=== PATIENT | male | born 1970 | race American Indian/Alaskan Native ===

== ENCOUNTER 2021-04-12 05:44 | Inpatient (IN) | payer MEDICAID, OTHER ==
--- NOTE | 2021-04-12 05:48 | Event Note ---
Date: 04/12/21 EMS documentation not available at time of chart dictation Verbal report received from EMS Medical screening examination note: 50-year-old gentleman brought to the emergency room by EMS who is currently a prisoner, with a history of stroke, and possible hypertension, reports no systemic anticoagulation use, presenting as a possible stroke. Last known well time approximately 1 hour prior to ER arrival. EMS reports normal Accu-Chek. Stroke symptoms include right arm and right leg weakness and numbness. Code stroke activated overhead. CT scan of the brain, CT angiogram head and neck ordered. Appropriate laboratory studies ordered. Neurology consultation pending. Oncoming ER provider to perform detailed history and physical examination, and direct definitive care. Patient is awake, alert, hemodynamically stable, protecting airway at this time.
[2021-04-12] MEDS ORDERED: ALTEPLASE 100 MG INJ KIT ONE (06:07)
[2021-04-12] MEDS ORDERED: SODIUM CHLORIDE 0.9% 100 ML ONE (06:07)
--- NOTE | 2021-04-12 06:11 | Consultation ---
History of Present Illness Consult date: 04/12/21 History of present illness: [facility] Consult Note # Demographics Consult Type: Acute Stroke Level 1 (0-4.5 hrs) Patient Location: Emergency Room First Name: Amilcar Last Name: Garry Date of : 1970 Age: 50 Gender: Male Facility: [facility] Time of Initial Page (Eastern Time): 04/12/2021, 05:40 Time of Return Call ( Time): 04/12/2021, 05:41 # HPI Chief Complaint: weakness (focal) History: Per EMS, patient developed right-sided numbness, followed by weakness at 4:40am. He was reportedly awake previous to that because his asthma was acting up." EMS also reported difficulty breathing, dyspnea, & chest pain. Patient did have residual left-sided deficits from previous stroke, uncertain if ischemic or hemorrhagic. Last Known Normal: I have collected independent history specific to time last normal or last known well. We have collaborated with the provider and at this time, we have the most current timeline with the information that is available. 11pm Duration: constant minutes hours Possible Thrombolytic candidate: not on warfarin or NOACs no intracranial hemorrhage history no recent major surgery Patient adamantly denied ICH or hemorrhagic transformation from prior 2014 stroke Associated Symptoms: no double vision headache no vision changes Quality: weakness Context/Pre-existing conditions: pre-existing motor deficit # Scores Time of exam and NIHSS ( Time): 04/12/2021, 05:44 Level of Consciousness 1a: [0] = Alert; keenly responsive LOC Questions 1b: [0] = Answers both questions correctly LOC Commands 1c: [0] = Performs both tasks correctly Best Gaze 2: [0] = Normal Visual 3: [0] = No visual loss Facial Palsy 4: [1] = Minor paralysis Motor Arm Left 5a: [0] = No drift Motor Arm Right 5b: [2] = Some effort against gravity Motor Leg Left 6a: [0] = No drift Motor Leg Right 6b: [2] = Some effort against gravity Limb Ataxia 7: [0] = Absent Sensory 8: [2] = Severe to total sensory loss Best Language 9: [0] = No aphasia Dysarthria 10: [0] = Normal Extinction and Inattention 11: [0] = No abnormality NIHSS Total: 7 Modified [place] Scale (mRS) pre-stroke: [1] = No signif. disability... carry out all usual duties/activities Modified [place] Scale total: 1 VAN Screening: Negative # Exam SBP: 188 DBP: 100 Mental Status: awake alert and oriented x 3 follows commands Language: normal speech Cranial Nerves: left facial droop Chronic from prior stroke Sensory: decreased sensation right face decreased sensation right upper extremity decreased sensation right lower extremity # ROS Pulmonary: shortness of breath Cardiovascular: chest pain # PMH-FH-SH Past Medical History: asthma Diabetes hypertension stroke February 2014 ischemia Medications: antihypertensive aspirin diabetic medication Allergies: NKDA # Data Glucose: [address] personally read by me ( Time): 04/12/2021, 05:[address]: no bleed MCA sign preliminarily reviewed by me, please refer to radiology read for official reading subacute ischemic stroke Possible left MCA hyperdense # Assessment Impression: Ischemic Stroke (Acute) # Plan Thrombolytic/Intervention: IV thrombolytic and possible IA candidate Thrombolytic Dosing: IV alteplase 0.9 mg/kg, max dose 90 mg; 10% of dose given over 1 minute IVP, remaining 90% given as infusion over 1 hour Possible IA Candidate: CTA pending Potential left MCA hyperdense sign on CT Time IV Thrombolytic Recommended ( Time): 04/12/2021, 06:05 Labs: CBC comprehensive metabolic panel ESR hemoglobin A1c lipid panel urine drug screen ua Imaging: (urgency: STAT): CT Angiogram Head and CT Angiogram Neck AND call back with results if abnormal Imaging: (urgency: routine): MRI Brain without contrast Diagnostic Test: echo without bubble study Therapy/Evaluation: NPO until swallow evaluation PT/OT evaluation Medication: start statin with goal of LDL < 70 DVT Prophylaxis: SCD chemical DVT prophylaxis Thrombolytic Administration Recommendations: I reviewed the risks/benefits/alternatives of IV thrombolytic therapy with the patient. They understand there is potential of life threatening hemorrhage from IV thrombolysis. I stated that I believe benefits outweighs risk. They wish to proceed with IV thrombolytic therapy. I have collected independent history specific to time last normal or last known well. We have collaborated with the ED provider and at this time, we have the most current timeline with the information that is available. BP goal< 180/105 for 24hrs post Thrombolytic administration Use Labetolol 10-20mg IV prn or Nicardipine gtt to maintain BP parameters No antiplatelets or anticoagulants for next 24 hrs unless indicated for emergent IA procedure or other life threatening situation ICU admission Other: LDL < 70 telemetry monitoring seizure precautions I have discussed my recommendations with the referring provider Disposition: admit
--- NOTE | 2021-04-12 06:15 | Cat Scan Report ---
CT HEAD WITHOUT CONTRAST INDICATION: CODE STROKE PROTOCOL!!! Stroke-Like symptoms. TECHNIQUE: All CT scans at this location are performed using CT dose reduction for ALARA by means of automated e xposure control. COMPARISON: None available. FINDINGS: HEMORRHAGE: None. EXTRA-AXIAL SPACES: Normal in size and morphology for the patient's age. VENTRICULAR SYSTEM: Normal in size and morphology for the patient's age. BRAIN PARENCHYMA: No acute findings. Encephalomalacia is noted in the right frontal lobe and within t he right parieto-occipital region which may be related to remote ischemic event. MIDLINE SHIFT OR HERNIATION: None. ORBITS: Normal as visualized. SOFT TISSUES OF HEAD: Normal. CALVARIUM: Changes from prior right frontotemporal craniotomy are noted. VISUALIZED PARANASAL SINUSES AND MASTOID AIR CELLS: There is complete opacification of the left maxil pauline sinus. ADDITIONAL FINDINGS: None. IMPRESSION: 1. No acute intracranial abnormality. CODE STROKE Time of Communication (CLOTHES PRESSER/CDT): 5:09 AM Signer Name: Keny Salomon MD Signed: 04/12/2021 6:10 AM Workstation Name: [id number]
[2021-04-12] MEDS ORDERED: SODIUM CHLORIDE 0.9% 50 ML IVPB IV ONE (06:16)
[2021-04-12] MEDS ORDERED: ALTEPLASE 100 MG INJ KIT IV ONE ×2 (06:16)
--- NOTE | 2021-04-12 06:38 | Emergency Department Report ---
ED Neuro Deficit HPI - General Stated Complaint: POSS STROKE Time Seen by Provider: 04/12/21 06:10 Source: patient, EMS - History of Present Illness Initial Comments: Patient is 51 years old male with history of left sided CVA in 2015, hypertension and diabetes. Patient brought to the emergency room via EMS from a local half-way for possible stroke. Patient symptoms started at 4:40 AM with right upper and lower extremity numbness followed by weakness. Patient denied any headache, neck pain, chest pain or shortness of breath. Patient denied any speech problem. No visual problem. He also denied any ataxia. Stroke protocol immediately initiated and patient moved to CT for stat CT head without contrast. Stroke telemetry neurologist immediately consulted and patient examined by . CT brain is negative for hemorrhage or mass- effect. Patient is a TPA candidate determined by Dr. Mcconnell. TPA immediately started. -: Sudden, This morning Location: left face, right arm, right leg Presenting Symptoms: Present: Weak/Paralyzed One Side, Facial Droop/Numbness Improves With: none Context: sudden onset Associated Symptoms: denies other symptoms - Related Data Allergies/Adverse Reactions: Allergies Allergy/AdvReac Type Severity Reaction Status Date / Time No Known Allergies Allergy Verified 04/12/21 06:22 ED Review of Systems ROS: Stated complaint: POSS STROKE Other details as noted in HPI Comment: All other systems reviewed and negative Constitutional: denies: chills, fever Respiratory: denies: cough, shortness of breath, SOB with exertion Cardiovascular: denies: chest pain, palpitations Gastrointestinal: denies: abdominal pain, nausea Neurological: weakness, numbness, paresthesias ED Neuro Physical Exam - General General appearance: alert, in no apparent distress Suspected Stroke: Yes - Head Head exam: Present: atraumatic, normocephalic, normal inspection - Eye Eye exam: Present: normal appearance, PERRL - ENT ENT exam: Present: normal exam, normal orophraynx, mucous membranes moist - Neck Neck exam: Present: normal inspection, full ROM. Absent: tenderness, meningismus - Respiratory Respiratory exam: Present: normal lung sounds bilaterally - Cardiovascular Cardiovascular Exam: Present: regular rate, normal rhythm, normal heart sounds - GI/Abdominal GI/Abdominal exam: Present: soft, normal bowel sounds. Absent: distended, tenderness, guarding, rebound, rigid, organomegaly, bruit, pulsatile mass, hernia - Extremities Exam Extremities exam: Present: normal inspection, full ROM, normal capillary refill. Absent: tenderness - Back Exam Back exam: Present: normal inspection. Absent: CVA tenderness (R), CVA tenderness (L) - Neurological Exam Neurological exam: Present: alert, oriented X3, motor sensory deficit. Absent: CN II-XII intact - NIHSS Assessment Interval: Baseline 1a. Level of Consciousness: alert/keenly responsive 1b. LOC Questions: answers both correctly 1c. LOC Commands: performs tasks correctly 2. Best Gaze: normal 3. Visual: no visual loss 4. Facial Palsy: partial paralysis 5b. Motor Arm Right: some gravity effort 5a. Motor Arm Left: no drift 6a. Motor Leg Left: no drift 6b. Motor Leg Right: some gravity effort 7. Limb Ataxia: absent 8. Sensory: severe/total sensory loss 9. Best Language: no aphasia 10. Dysarthria: normal 11. Extinction/Inattention: no abnormality Total Score: 8 Stroke Severity: Moderate Stroke - Psychiatric Psychiatric exam: Present: normal mood - Skin Skin exam: Present: warm, intact, normal color ED Course Vital Signs 04/12/21 04/12/21 04/12/21 06:31 06:37 06:48 Temperature Pulse Rate 105 H 106 H 108 H Pulse Rate [ Right Arm] Respiratory 20 Rate Respiratory Rate [Right Arm ] Blood Pressure 160/93 169/99 Blood Pressure [Right Arm] Blood Pressure 167/94 [Right] O2 Sat by Pulse 96 Oximetry O2 Sat by Pulse Oximetry [ Right Arm] 04/12/21 04/12/21 04/12/21 06:50 07:00 07:07 Temperature 98.3 F Pulse Rate Pulse Rate [ 120 H 107 H Right Arm] Respiratory Rate Respiratory 20 19 Rate [Right Arm ] Blood Pressure Blood Pressure 169/99 158/94 [Right Arm] Blood Pressure [Right] O2 Sat by Pulse Oximetry O2 Sat by Pulse 99 100 Oximetry [ Right Arm] 04/12/21 04/12/21 04/12/21 07:15 07:30 07:45 Temperature Pulse Rate Pulse Rate [ 106 H 110 H 106 H Right Arm] Respiratory Rate Respiratory 18 18 18 Rate [Right Arm ] Blood Pressure Blood Pressure 150/93 164/92 174/99 [Right Arm] Blood Pressure [Right] O2 Sat by Pulse Oximetry O2 Sat by Pulse 94 96 96 Oximetry [ Right Arm] 04/12/21 08:00 Temperature Pulse Rate Pulse Rate [ 110 H Right Arm] Respiratory Rate Respiratory 18 Rate [Right Arm ] Blood Pressure Blood Pressure 174/92 [Right Arm] Blood Pressure [Right] O2 Sat by Pulse Oximetry O2 Sat by Pulse 94 Oximetry [ Right Arm] - Reevaluation(s) Reevaluation #1: 04/12/21 07:45 Patient getting a TPA with no complication. Patient denied any change in his symptoms yet. Patient also complained of headache however this headache started before the TPA started. He stated that he has been having headache for a few days. Patient received Tylenol. Reevaluation #2: 04/12/21 08:07 TPA is going with no difficulty. No new symptoms. Patient denied any confusion or increased weakness or numbness. Vital signs stable slightly increased blood pressure up to 175 systolic but is permissible for his current stroke. - Lab Data Result diagrams: 04/12/21 06:32 04/12/21 06:32 Lab Results 04/12/21 04/12/21 04/12/21 Range/Units 06:32 06:32 06:32 WBC 8.9 (4.5-11.0) K/mm3 RBC 5.18 H (3.65-5.03) M/mm3 Hgb 12.4 (11.8-15.2) gm/dl Hct 39.7 (35.5-45.6) % MCV 77 L (84-94) fl MCH 24 L (28-32) pg MCHC 31 L (32-34) % RDW 16.5 H (13.2-15.2) % Plt Count 313 (140-440) K/mm3 Lymph % (Auto) 20.9 (13.4-35.0) % Gilchrist % (Auto) 5.0 (0.0-7.3) % Eos % (Auto) 0.8 (0.0-4.3) % Baso % (Auto) 1.2 (0.0-1.8) % Lymph # (Auto) 1.9 (1.2-5.4) K/mm3 Gilchrist # (Auto) 0.4 (0.0-0.8) K/mm3 Eos # (Auto) 0.1 (0.0-0.4) K/mm3 Baso # (Auto) 0.1 (0.0-0.1) K/mm3 Seg Neutrophils % 72.1 H (40.0-70.0) % Seg Neutrophils # 6.4 (1.8-7.7) K/mm3 PT 11.8 L (12.2-14.9) Sec. INR 0.79 L (0.87-1.13) APTT 23.8 L (24.2-36.6) Sec. Thrombin Time 17.7 (15.1-19.6) Sec. Sodium 136 L (137-145) mmol/L Potassium 3.9 (3.6-5.0) mmol/L Chloride 100.5 (98-107) mmol/L Carbon Dioxide 21 L (22-30) mmol/L Anion Gap 18 mmol/L BUN 9 (9-20) mg/dL Creatinine 1.1 (0.8-1.3) mg/dL Estimated GFR > 60 ml/min BUN/Creatinine Ratio 8 % Glucose 253 H (75-100) mg/dL Calcium 8.6 (8.4-10.2) mg/dL Total Bilirubin 0.30 (0.1-1.2) mg/dL AST 34 (5-40) units/L ALT 40 (7-56) units/L Alkaline Phosphatase 106 (35-129) units/L Total Creatine Kinase 373 H (55-170) units/L CK-MB (CK-2) 6.6 H (0.0-4.0) ng/mL CK-MB (CK-2) Rel Index 1.7 (0-4) Troponin T < 0.010 (0.00-0.029) ng/mL Total Protein 7.5 (6.3-8.2) g/dL Albumin 4.0 (3.9-5) g/dL Albumin/Globulin Ratio 1.1 % Plasma/Serum Alcohol (0-0.07) % // Range/Units 06:32 WBC (4.5-11.0) K/mm3 RBC (3.65-5.03) M/mm3 Hgb (11.8-15.2) gm/dl Hct (35.5-45.6) % MCV (84-94) fl MCH (28-32) pg MCHC (32-34) % RDW (13.2-15.2) % Plt Count (140-440) K/mm3 Lymph % (Auto) (13.4-35.0) % Gilchrist % (Auto) (0.0-7.3) % Eos % (Auto) (0.0-4.3) % Baso % (Auto) (0.0-1.8) % Lymph # (Auto) (1.2-5.4) K/mm3 Gilchrist # (Auto) (0.0-0.8) K/mm3 Eos # (Auto) (0.0-0.4) K/mm3 Baso # (Auto) (0.0-0.1) K/mm3 Seg Neutrophils % (40.0-70.0) % Seg Neutrophils # (1.8-7.7) K/mm3 PT (12.2-14.9) Sec. INR (0.87-1.13) APTT (24.2-36.6) Sec. Thrombin Time (15.1-19.6) Sec. Sodium (137-145) mmol/L Potassium (3.6-5.0) mmol/L Chloride (98-107) mmol/L Carbon Dioxide (22-30) mmol/L Anion Gap mmol/L BUN (9-20) mg/dL Creatinine (0.8-1.3) mg/dL Estimated GFR ml/min BUN/Creatinine Ratio % Glucose (75-100) mg/dL Calcium (8.4-10.2) mg/dL Total Bilirubin (0.1-1.2) mg/dL AST (5-40) units/L ALT (7-56) units/L Alkaline Phosphatase (35-129) units/L Total Creatine Kinase (55-170) units/L CK-MB (CK-2) (0.0-4.0) ng/mL CK-MB (CK-2) Rel Index (0-4) Troponin T (0.00-0.029) ng/mL Total Protein (6.3-8.2) g/dL Albumin (3.9-5) g/dL Albumin/Globulin Ratio % Plasma/Serum Alcohol < 0.01 (0-0.07) % - EKG Data -: EKG Interpreted by Me - Radiology Data Radiology results: report reviewed - Medical Decision Making Patient is 51 years old male with history of left sided CVA in 2015, hypertension and diabetes. Patient brought to the emergency room via EMS from a local half-way for possible stroke. Patient symptoms started at 4:40 AM with right upper and lower extremity numbness followed by weakness. Patient denied any headache, neck pain, chest pain or shortness of breath. Patient denied any speech problem. No visual problem. He also denied any ataxia. Stroke protocol immediately initiated and patient moved to CT for stat CT head without contrast. Stroke telemetry neurologist immediately consulted and patient examined by . CT brain is negative for hemorrhage or mass- effect. Patient is a TPA candidate determined by Dr. Mcconnell. TPA immediately started. CTA neck and CTA brain showed right internal carotid artery occluded into entire course. I discussed this finding with Dr. Mcconnell, he stated that this is most likely from his previous stroke and patient does not need thrombectomy. I discussed the patient with Dr. Malik, he stated that the patient will be admitted by Dr. Guan. Critical Care Time: Yes Critical care time in (mins) excluding proc time.: 45 Critical care attestation.: If time is entered above; I have spent that time in minutes in the direct care of this critically ill patient, excluding procedure time. ED Disposition Clinical Impression: Acute CVA (cerebrovascular accident), tPA adm status 24 hr [facility] Disposition: 09 ADMITTED INPATIENT Is pt being admited?: Yes Condition: Stable
[2021-04-12 06:42] LABS: Basophils # (Auto) 0.1 K/mm3 (0.0-0.1); Basophils % (Auto) 1.2 % (0.0-1.8); Eosinophils # (Auto) 0.1 K/mm3 (0.0-0.4); Eosinophils % (Auto) 0.8 % (0.0-4.3); Hematocrit 39.7 % (35.5-45.6); Hemoglobin 12.4 gm/dl (11.8-15.2); Lymphocytes # (Auto) 1.9 K/mm3 (1.2-5.4); Lymphocytes % (Auto) 20.9 % (13.4-35.0); Mean Corpuscular HGB Conc 31 % (32-34); Mean Corpuscular Volume 77 fl (84-94); Monocytes # (Auto) 0.4 K/mm3 (0.0-0.8); Platelet Count 313 K/mm3 (140-440); Red Blood Count 5.18 M/mm3 (3.65-5.03); Red Cell Distribution Width 16.5 % (13.2-15.2)
[2021-04-12 06:49] LABS: INR 0.79 (0.87-1.13); Partial Thromboplastin Time 23.8 Sec. (24.2-36.6)
[2021-04-12 06:50] LABS: Thrombin Time 17.7 Sec. (15.1-19.6)
--- NOTE | 2021-04-12 06:51 | Cat Scan Report ---
CT angio head INDICATION / CLINICAL INFORMATION: 50 years Male; CODE STROKE PROTOCOL!!! Stroke-Like symptoms. TECHNIQUE: Thin cut axial images obtained through the head during IV bolus contrast administration. S agittal, coronal, and 3 plane MIP reconstructions performed by the technologist. NASCET type criteria used evaluate stenoses. Automated exposure control utilized for radiation reduction purposes. . COMPARISON: CT head - same day FINDINGS: INTERNAL CAROTID ARTERIES: No flow is seen in a majority of the right internal carotid artery. There is evidence of contrast in the communicating portion of the right internal carotid artery, presumably by retrograde flow. Atherosclerotic disease seen in the cavernous portion of the left internal carotid artery. No hemodyn amically significant narrowing appreciated. VERTEBROBASILAR SYSTEM: No significant narrowing appreciated. DISTAL BRANCHES: Distal branches of the anterior, middle, and posterior cerebral arteries are fairly symmetric in appearance and number. Hypoplastic A1 segment seen on the right. ANEURYSM: None identified. ADDITIONAL FINDINGS: Large craniotomy site seen in the right frontoparietal temporal region. Multiple areas of encephalomalacia seen in the right MCA territory. It would be difficult to evaluate for sma ll areas of tania-infarct ischemia without diffusion imaging by MRI. Left maxillary sinus appears to be completely opacified. Mild to moderate mucosal thickening seen in the ethmoids on the left. IMPRESSION: 1. 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 2. Old areas of prior right MCA infarct. Follow-up with diffusion imaging by MRI, as clinically liya gann. Signer Name: Dharmesh Thurman MD, III Signed: 04/12/2021 6:46 AM Workstation Name: [email or web address]
--- NOTE | 2021-04-12 06:57 | Cat Scan Report ---
CT angio neck INDICATION / CLINICAL INFORMATION: 50 years Male; CODE STROKE PROTOCOL!!! Stroke-Like symptoms. TECHNIQUE: Thin cut axial images obtained through the head during IV bolus contrast administration. S agittal, coronal, and 3 plane MIP reconstructions performed by the technologist. NASCET type criteria used evaluate stenoses. All CT scans at this location are performed using CT dose reduction for ALAR A by means of automated exposure control. . COMPARISON: None available. FINDINGS: ARCH: Normal aortic arch branching suggested. CAROTID ARTERIES: The left common and internal carotid arteries are widely patent. The right common carotid artery is widely patent. The left internal carotid artery is occluded in the region of the bulb extending throughout its cours e, with flow seen only in the most distal portion of the vessel, which is most likely by retrograde f low. VERTEBRAL ARTERIES: Left dominant vertebral system seen. No significant stenosis appreciated. ADDITIONAL FINDINGS: There is opacification of the left maxillary antrum. IMPRESSION: The right internal carotid artery is occluded throughout a majority of its course, as mariano cribed above. Signer Name: Dharmesh Thurman MD, III Signed: 04/12/2021 6:52 AM Workstation Name: [id number] [email or web address] [email or web address]
[2021-04-12] MEDS ORDERED: ACETAMINOPHEN 325 MG TAB PO ONE (07:01)
[2021-04-12 07:17] LABS: Alanine Aminotransferase 40 units/L (7-56); BUN/Creatinine Ratio 8; Blood Urea Nitrogen 9 mg/dL (9-20); Calcium 8.6 mg/dL (8.4-10.2); Creatine Kinase MB 6.6 ng/mL (0.0-4.0); Hemolysis Index 10
[2021-04-12] MEDS ORDERED: DEXTROSE 50% IN WATER (25GM) 50 ML SYRINGE IV PRN (09:48)
--- NOTE | 2021-04-12 09:53 | History and Physical Report ---
History of Present Illness Date of examination: 04/12/21 Date of admission: 04/12/21 Chief complaint: Right Upper ext weakness s/p TPA History of present illness: Patient is a 50-year-old man with past medical history of hypertension, prior CVA status post cranial surgery per the patient, hyperlipidemia who presents to the ED with complaints of right upper extremity weakness. Stroke symptoms include right arm and right leg weakness and numbness. The patient is currently on the custody with the state. He reports that he was arrested due to license and tag. He was not forthcoming with information. He did report to the ER that his symptoms started at 4:40 AM while he was under custody with associated difficulty breathing dyspnea and chest pain. He reports that he does have residual left-sided deficits from previous stroke. On arrival to the ED he was NIHSS scale was 7 patient received TPA. Were requested for admission to the ICU for further monitoring and evaluation. During my exam he denies any chest pain nausea vomiting or diarrhea. He does not have any overt bleeding. He denies any visual changes. Initial imaging CT head was unremarkable SBP is 180 with DBP: 100 Past History Past Medical History: stroke Past Surgical History: Other (Prior brain surgery per patient) Social history: lives with family, full code Family history: no significant family history Medications and Allergies Allergies Allergy/AdvReac Type Severity Reaction Status Date / Time No Known Allergies Allergy Verified 04/12/21 06:22 Active Meds: Active Medications Acetaminophen (Acetaminophen 650 Mg Rect Supp) 650 mg AK Q6H PRN PRN Reason: Pain MILD(1-3)/Fever >100.5/LARA Al Hydrox/Mg Hydrox/Simethicone (Alum-Mag Hydroxide-Simethicone [id number]/5ml Oral Liqd 30 Ml) 30 ml PO Q4H PRN PRN Reason: Indigestion Albuterol (Albuterol 2.5 Mg/3 Ml Nebu) 2.5 mg IH Q3HRT PRN PRN Reason: Shortness Of Breath Aspirin (Aspirin 325 Mg Tab) 325 mg PO QDAY GURPREET Atorvastatin Calcium (Atorvastatin 40 Mg Tab) 40 mg PO QHS GURPREET Dextrose (Dextrose 50% In Water (25gm) 50 Ml Syringe) 50 ml IV Q30MIN PRN; Protocol PRN Reason: Hypoglycemia Famotidine (Famotidine 20 Mg/2 Ml Inj) 20 mg IV BID GURPREET Heparin Sodium (Porcine) (Heparin 5,000 Unit/1 Ml Vial) 5,000 unit SUB-Q Q8HR GURPREET Insulin Human Regular (Insulin Regular, Human 100 Units/1 Ml) 0 units SUB-Q ACHS [facility]; Protocol Naloxone HCl (Naloxone 0.4 Mg/1 Ml Inj) 0.1 mg IV Q2MIN PRN PRN Reason: Res Rate </= 8 or 02 SAT < 92% Ondansetron HCl (Ondansetron 4 Mg/2 Ml Inj) 4 mg IV Q4H PRN PRN Reason: Nausea And Vomiting Oxycodone/Acetaminophen (Oxycodone /Acetaminophen 5-325mg Tab) 1 tab PO Q6H PRN PRN Reason: Pain, Moderate (4-6) Sodium Chloride (Sodium Chloride 0.9% 10 Ml Flush Syringe) 10 ml IV BID GURPREET Sodium Chloride (Sodium Chloride 0.9% 10 Ml Flush Syringe) 10 ml IV PRN PRN PRN Reason: LINE FLUSH Sodium Chloride (Sodium Chloride 0.9% 10 Ml Flush Syringe) 10 ml INJ PRN PRN PRN Reason: LINE FLUSH Review of Systems All systems: negative Constitutional: weakness (Right upper and lower extremity), lethargy, no weight gain, no fever, no chills, no sweats, no night sweats, no fatigue, no malaise Cardiovascular: no chest pain, no orthopnea, no palpitations, no rapid/irregular heart beat, no edema, no syncope, no lightheadedness, no shortness of breath, no dyspnea on exertion, no paroxysmal nocturnal dyspnea Respiratory: no cough, no cough with sputum, no excessive sputum, no hemoptysis, no shortness of breath, no dyspnea on exertion Musculoskeletal: no neck stiffness, no neck pain, no shooting arm pain, no arm numbness/tingling, no low back pain, no shooting leg pain Neurological: weakness (Right upper lobe and left upper), gait dysfunction Exam - Physical Exam Narrative exam: VITAL SIGNS: Reviewed. GENERAL: The patient appears normally developed, Vital signs as documented. HEAD: No signs of head trauma. EYES: Pupils are equal. Extraocular motions intact. EARS: Hearing grossly intact. MOUTH: Oropharynx is normal. NECK: No adenopathy, no JVD. CHEST: Chest with clear breath sounds bilaterally. No wheezes, rales, or rhonchi. CARDIAC: Regular rate and rhythm. S1 and S2, without murmurs, gallops, or rubs. VASCULAR: No Edema. Peripheral pulses normal and equal in all extremities. ABDOMEN: Soft, non tender and non distended. No rebound or guarding, and no masses palpated. Bowel Sounds normal. MUSCULOSKELETAL: Good range of motion of all major joints. Extremities without clubbing, cyanosis or edema. NEUROLOGIC EXAM: Alert and oriented x 3 right-sided face upper extremity and lower extremity numbness. Motor strength right upper extremity 3/5 right lower extremity 4/5 although effort is questioned.. Speech normal. Follows commands. PSYCHIATRIC: Mood normal. SKIN: detail exam as documented in skin assessment - Constitutional Vitals: Temp Pulse Resp BP Pulse Ox 98.3 F 100 H 19 157/96 95 04/12/21 07:07 04/12/21 08:31 04/12/21 08:31 04/12/21 08:31 04/12/21 08:31 HEART Score - HEART Score Troponin: Troponin T < 0.010 ng/mL (0.00-0.029) 04/12/21 06:32 Results - Labs CBC & Chem 7: 04/12/21 06:32 04/12/21 06:32 Labs: Laboratory Last Values WBC 8.9 K/mm3 (4.5-11.0) 04/12/21 06:32 RBC 5.18 M/mm3 (3.65-5.03) H 04/12/21 06:32 Hgb 12.4 gm/dl (11.8-15.2) 04/12/21 06:32 Hct 39.7 % (35.5-45.6) 04/12/21 06:32 MCV 77 fl (84-94) L 04/12/21 06:32 MCH 24 pg (28-32) L 04/12/21 06:32 MCHC 31 % (32-34) L 04/12/21 06:32 RDW 16.5 % (13.2-15.2) H 04/12/21 06:32 Plt Count 313 K/mm3 (140-440) 04/12/21 06:32 Lymph % (Auto) 20.9 % (13.4-35.0) 04/12/21 06:32 Marshall % (Auto) 5.0 % (0.0-7.3) 04/12/21 06:32 Eos % (Auto) 0.8 % (0.0-4.3) 04/12/21 06:32 Baso % (Auto) 1.2 % (0.0-1.8) 04/12/21 06:32 Lymph # (Auto) 1.9 K/mm3 (1.2-5.4) 04/12/21 06:32 Marshall # (Auto) 0.4 K/mm3 (0.0-0.8) 04/12/21 06:32 Eos # (Auto) 0.1 K/mm3 (0.0-0.4) 04/12/21 06:32 Baso # (Auto) 0.1 K/mm3 (0.0-0.1) 04/12/21 06:32 Seg Neutrophils % 72.1 % (40.0-70.0) H 04/12/21 06:32 Seg Neutrophils # 6.4 K/mm3 (1.8-7.7) 04/12/21 06:32 PT 11.8 Sec. (12.2-14.9) L 04/12/21 06:32 INR 0.79 (0.87-1.13) L 04/12/21 06:32 APTT 23.8 Sec. (24.2-36.6) L 04/12/21 06:32 Thrombin Time 17.7 Sec. (15.1-19.6) 04/12/21 06:32 Sodium 136 mmol/L (137-145) L 04/12/21 06:32 Potassium 3.9 mmol/L (3.6-5.0) 04/12/21 06:32 Chloride 100.5 mmol/L (98-107) 04/12/21 06:32 Carbon Dioxide 21 mmol/L (22-30) L 04/12/21 06:32 Anion Gap 18 mmol/L 04/12/21 06:32 BUN 9 mg/dL (9-20) 04/12/21 06:32 Creatinine 1.1 mg/dL (0.8-1.3) 04/12/21 06:32 Estimated GFR > 60 ml/min 04/12/21 06:32 BUN/Creatinine Ratio 8 % 04/12/21 06:32 Glucose 253 mg/dL (75-100) H 04/12/21 06:32 Calcium 8.6 mg/dL (8.4-10.2) 04/12/21 06:32 Total Bilirubin 0.30 mg/dL (0.1-1.2) 04/12/21 06:32 AST 34 units/L (5-40) 04/12/21 06:32 ALT 40 units/L (7-56) 04/12/21 06:32 Alkaline Phosphatase 106 units/L (35-129) 04/12/21 06:32 Total Creatine Kinase 373 units/L (55-170) H 04/12/21 06:32 CK-MB (CK-2) 6.6 ng/mL (0.0-4.0) H 04/12/21 06:32 CK-MB (CK-2) Rel Index 1.7 (0-4) 04/12/21 06:32 Troponin T < 0.010 ng/mL (0.00-0.029) 04/12/21 06:32 Total Protein 7.5 g/dL (6.3-8.2) 04/12/21 06:32 Albumin 4.0 g/dL (3.9-5) 04/12/21 06:32 Albumin/Globulin Ratio 1.1 % 04/12/21 06:32 Plasma/Serum Alcohol < 0.01 % (0-0.07) 04/12/21 06:32 Assessment and Plan Assessment and plan: Patient is a 50-year-old man with past medical history of hypertension, diabetes mellitus, prior CVA status post cranial surgery per the patient, hyperlipidemia who presents to the ED with complaints of right upper extremity weakness. Stroke symptoms include right arm and right leg weakness and numbness. The patient is currently on the custody with the state. He reports that he was arrested due to license and tag. He was not forthcoming with information. He did report to the ER that his symptoms started at 4:40 AM while he was under custody with associated difficulty breathing dyspnea and chest pain. He reports that he does have residual left-sided deficits from previous stroke. On arrival to the ED he was NIHSS scale was 7 patient received TPA. Were requested for admission to the ICU for further monitoring and evaluation. During my exam he denies any chest pain nausea vomiting or diarrhea. He does not have any overt bleeding. He denies any visual changes. Initial imaging CT head was unremarkable. While patient informs me that he takes a cholesterol medication he says he was taken off aspirin years ago. 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 Aspirin to initiate in the a.m. and heparin due to recent TPA administration Lipid profile We will allow for permissive hypertension for the next 24 hours and begin to gradually decrease blood pressure in a.m. Neurochecks every 2 hours Insulin for diabetic management while we obtain patient's to home medication list and will reconcile DVT and GI prophylaxis Plan of care discussed with the patient in detail The high probability of a clinically significant, sudden or life threatening deterioration of the [neurology] system(s) required my full and direct attention, intervention and personal management. The aggregate critical care time was [35] minutes. This time is in addition to time spent performing rep orted procedures but includes the following: [x] Data Review and interpretation [x] Patient assessment and monitoring of vital signs [x] Documentation [x] Medication orders and management Advance Directives: Yes Plan of care discussed with patient/family: Yes
[2021-04-12] MEDS ORDERED: DEXTROSE 10% *Hypoglycemia IV PRN (10:04)
[2021-04-12] MEDS ORDERED: ACETAMINOPHEN 650 MG RECT SUPP PR PRN (10:30)
[2021-04-12] MEDS ORDERED: ONDANSETRON 4 MG/2 ML INJ IV PRN (11:00)
[2021-04-12] MEDS ORDERED: ALUM-MAG HYDROXIDE-SIMETHICONE 200-200-20MG/5ML ORAL LIQD 30 ML PO PRN (11:00)
[2021-04-12] MEDS ORDERED: FAMOTIDINE 20 MG/2 ML INJ IV SCH (11:00)
[2021-04-12] MEDS ORDERED: oxyCODONE /ACETAMINOPHEN 5-325MG TAB PO PRN (11:00)
[2021-04-12] MEDS ORDERED: ALBUTEROL 2.5 MG/3 ML NEBU IH PRN (11:00)
[2021-04-12] MEDS ORDERED: NALOXONE 0.4 MG/1 ML INJ IV PRN (11:00)
--- NOTE | 2021-04-12 11:28 | Magnetic Resonance Report ---
MR brain wo con INDICATION / CLINICAL INFORMATION: cva, LT SIDED WEAKNESS & NUMBNESS. TECHNIQUE: Multiplanar, multisequence MR images of the brain were obtained. COMPARISON: 04/12/2021 CT head FINDINGS: INTRACRANIAL: No restricted diffusion. There is extensive encephalomalacia and gliosis involving the right frontal parietal, and parieto-occipital region which is unchanged from prior exam. There is los s of the right internal carotid artery flow void. No hemorrhage. Ventricular caliber is normal. No ex tra-axial collection. No mass. No herniation. ORBITS: No significant abnormality of visualized orbits. SINUSES / MASTOIDS: Left maxillary sinus disease with complete opacification of the sinus. ADDITIONAL FINDINGS: Prior right craniotomy IMPRESSION: 1. No acute infarction. 2. Right internal carotid artery occlusion with corresponding remote infarctions of the right JULIANNA and MCA territories. Signer Name: Tiago García MD Signed: 04/12/2021 11:23 AM Workstation Name: [id number]
[2021-04-12] MEDS ORDERED: INSULIN REGULAR, HUMAN 100 UNITS/1 ML SUB-Q SCH (11:30)
[2021-04-12 12:38] VITALS: BP 154/90
--- NOTE | 2021-04-12 13:37 | Event Note ---
Date: 04/12/21 patient left AMA
[2021-04-13] MEDS ORDERED: ASPIRIN 325 MG TAB PO SCH (10:00)
[2021-04-13] MEDS ORDERED: HEPARIN 5,000 UNIT/1 ML VIAL SUB-Q SCH (14:00)
--- NOTE | 2021-04-13 17:31 | Electrocardiograph Report ---
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
== END 2021-04-12 12:38 | disposition left against medical advice (07) | DRG 62 ==
LOC: EEVIPCON 05:44 → ED 05:44 → CC1 09:48
PROVIDERS: ADMIT Internal Medicine; ATTEND Internal Medicine
DX: I63.9 Cerebral infarction, unspecified (principal); I69.354 Hemiplegia and hemiparesis following cerebral infarction affecting left non-dominant side; I10 Essential (primary) hypertension; E11.9 Type 2 diabetes mellitus without complications; E78.5 Hyperlipidemia, unspecified; Z53.29 Procedure and treatment not carried out because of patient's decision for other reasons; I16.0 Hypertensive urgency
CPT/HCPCS: 36415; 70450; 70496; 70498; 70551; 80053; 80320; 82550; 82553; 84484; 85025; 85610; 85670; 85730; 93005; 93010; G0378; G0480; J2997; Q9967